=== PATIENT | female | born 1940 | race American Indian/Alaskan Native ===

== ENCOUNTER 2021-06-01 06:22 | Day surgery (SDC) | payer MEDICARE ==
[2021-06-01] MEDS ORDERED: ASPIRIN EC 325 MG TAB PO ONE (06:49)
[2021-06-01] MEDS ORDERED: SODIUM CHLORIDE 0.9% 500 ML 500 ML IV SCH (07:00)
[2021-06-01] MEDS ORDERED: HEPARIN 10,000 UNITS/10 ML VIAL ONE (08:11)
[2021-06-01] MEDS ORDERED: NITROGLYCERIN SYRINGE 3 ML ONE (08:11)
[2021-06-01] MEDS ORDERED: HEPARIN/NS 5000 UNIT/500ML 1,000 ML IR ONE (08:11)
[2021-06-01] MEDS ORDERED: LIDOCAINE (2%) 20 MG/1 ML VIAL 20 ML MDV INFILTRATI ONE (08:11)
[2021-06-01] MEDS: fentaNYL 100 MCG/2 ML INJ ONE ×4 (08:34→08:51)
[2021-06-01] MEDS: MIDAZOLAM 2 MG/2 ML INJ ONE ×3 (08:35→08:42)
[2021-06-01] MEDS ORDERED: traMADol 50 MG TAB PO PRN (09:09)
[2021-06-01] MEDS ORDERED: HYDROcodone/ACETAMINOPHEN 5-325 MG TAB PO PRN (09:09)
--- NOTE | 2021-06-01 10:27 | Cardiac Catherization Report ---
DATE OF SERVICE: 06/01/2021 LEFT HEART CATHETERIZATION/BYPASS GRAFT AND BYPASS VENOUS AND PATEL ANGIOGRAPHY CLINICAL INFORMATION: This is an 80-year-old female with history of bypass 3-vessel, PATEL to LAD, SVG to OM and SVG to PDA and PCI of the circ. Last cath was in 2011. Had chest pain with abnormal stress test despite medical management. She had a left heart cath. Procedure was done with moderate sedation started at 8:34, finished at 8:50. There is 16 minutes of moderate sedation noted. DESCRIPTION OF PROCEDURE: Procedure was done via the right common femoral artery, sterile technique and local anesthesia. The 5-Maldivian groin sheath placed in the right common femoral artery. Left system engaged with JL4 catheter. Left main is large and patent. LAD is a medium to large caliber vessel, proximal is patent. Then, diagonal 1 is a small caliber vessel with multiple branches with [id number] tortuosity of the mid 80%. Vessel was ____ vessel. Then, the mid LAD has a 95% lesion with competitive flow. PATEL was engaged with a JR4 catheter, has a medium caliber graft, free of disease from the ostium, body anastomosis site into the mid LAD, feeding retrograde and antegrade from the LAD. Circumflex proximal stent widely patent, OM 100%, mid circ at AV groove 30% and it is a codominant vessel. OM3 patent. SVG to OM2 is a small caliber graft that is patent from proximally and distally, feeds into a small caliber OM2 with retrograde fill into the [place] circ. RCA engaged with JR4, is 100% proximally. You see left to right collaterals feeding the left system filling the small PLV. Then, RCA, the SVG to PDA is a small caliber graft, but it is patent from proximally and distally, feeds into a small PDA that is a less than 2 mm vessel. So LV gram done in [place] and [place] views, shows normal LV function, EF 55-60%, LVEDP of 15 mmHg. LV is 144, aortic is 144/66. No gradient across the aortic valve on pullback. The 5-Maldivian catheters, all taken over guidewire. A 5-Maldivian groin sheath was discontinued, manual pressure held. No hematoma, no bleeding. SUMMARY: Left main patent, LAD proximal patent, mid 95% with patent PATEL to LAD. Diagonal 1 small caliber vessel, but multiple branches, mid 90%. Circumflex proximal stent widely patent. Mid circ 30%, OM 100%. OM2, SVG to OM2 is patent, but small vessel. OM3 patent, left to right collaterals feeding into a small PLV. RCA proximal 100% with patent SVG to PDA, but small vessel, smaller than 2 mm, small vessel disease. We will treat medically. Improvement in cath from 2011 with normal LV function. Explained to the patient and the patient's family in detail. TID: [id number] RECEIPT: [id number] DAVID/AMPARO/CONCEPCION
--- NOTE | 2021-06-01 10:45 | Short Stay Summary ---
Short Stay Documentation Date of service: 06/01/21 - History H&P: obtained from office - Allergies and Medications Current Medications: Allergies No Known Allergies Allergy (Verified 02/10/14 18:20) Home Medications Medication Instructions Recorded Confirmed Last Taken Type Clopidogrel Bisulfate [Plavix] 75 mg PO QDAY 02/10/14 06/01/21 06/01/21 History Felodipine [Felodipine ER] 5 mg PO DAILY 02/10/14 06/01/21 05/31/21 History Metoprolol [Lopressor TAB] 50 mg PO BID 02/10/14 06/01/21 05/31/21 History Oxycodone HCl/Acetaminophen 1 tab PO TID PRN #20 tablet 02/10/14 06/01/21 05/31/21 Rx [Percocet 7.5/325 mg] Pantoprazole [Protonix] 40 mg PO QDAY 02/10/14 06/01/21 05/31/21 History Simvastatin (Nf) [Zocor] 40 mg PO QDAY 02/10/14 06/01/21 05/31/21 History hydroCHLOROthiazide 25 mg PO QDAY 02/10/14 06/01/21 05/31/21 History [Hydrochlorothiazide] Losartan [Cozaar] 100 mg PO QDAY 06/01/21 06/01/21 05/31/21 History Active Medications Hydrocodone Bitart/Acetaminophen (Hydrocodone/Acetaminophen 5-325 Mg Tab) 1 each PO Q4H PRN PRN Reason: Pain, Moderate (4-6) Sodium Chloride (Nacl 0.9% 500 Ml) 500 mls @ 50 mls/hr IV DIRECT ROEL Stop: 06/01/21 16:59 Last Admin: 06/01/21 08:01 Dose: 50 mls/hr Tramadol HCl (Tramadol 50 Mg Tab) 50 mg PO Q4H PRN PRN Reason: Pain, Mild (1-3) - Physical exam Integumentary: other (Dressing clean dry and intact no signs of bleeding or hematoma) - Brief post op/procedure progress note Date of procedure: 06/01/21 Pre-op diagnosis: Abnormal stress test Post-op diagnosis: other (Coronary artery disease) Anesthesia: local Estimated blood loss: minimal - Hospital course Hospital course: Patient went for LHC through groin due to abnormal stress test. Cath showed improvement from previous cath. Patient tolerated procedure well with no complication. Patient to be discharged home with medical management - Disposition Condition at discharge: Good Disposition: 01 HOME / SELF CARE / HOMELESS - Discharge Diagnoses (1) Hx of CABG Status: Acute (2) CAD (coronary artery disease) Status: Acute (3) HTN (hypertension) Status: Acute (4) HLD (hyperlipidemia) Status: Acute (5) Chronic venous insufficiency Status: Acute (6) Stenosis of carotid artery Status: Acute Short Stay Discharge Plan Activity: advance as tolerated Diet: low fat, low cholesterol, low salt Wound: keep clean and dry, per your surgeon's advice Follow up with: WES BAILEY [Other] - 7 Days TED WHITE MD [Staff Physician] - 7 Days
[2021-06-01 13:58] VITALS: BP 136/52
--- NOTE | 2021-06-01 14:12 | Electrocardiograph Report ---
[facility] Test Date: 2021-06-01 Test Time: 07:32:15 Pat Name: MAKSIM CARRASCO Department: Room: Gender: F Fraud Examiner: JENNIFER : 1940 Requested By: TED WHITE Order Number: [id number] Reading MD: Jake Nicholson Measurements Intervals [place] Rate: 64 P: 60 WA: 179 QRS: 24 QRSD: 85 T: 37 QT: 376 QTc: 389 Interpretive Statements Sinus arrhythmia Left ventricular hypertrophy No previous ECG available for comparison Electronically Signed On 06-01-2021 14:12:21 EST by Jake Nicholson
== END 2021-06-01 13:45 | disposition home or self-care (01) ==
LOC: CATHLABREC 06:22
PROVIDERS: ATTEND Internal Medicine
DX: R07.89 Other chest pain (principal); R94.39 Abnormal result of other cardiovascular function study; I25.10 Atherosclerotic heart disease of native coronary artery without angina pectoris; I10 Essential (primary) hypertension; E78.5 Hyperlipidemia, unspecified; I87.2 Venous insufficiency (chronic) (peripheral); K21.9 Gastro-esophageal reflux disease without esophagitis; M19.90 Unspecified osteoarthritis, unspecified site; Z90.710 Acquired absence of both cervix and uterus; Z79.899 Other long term (current) drug therapy; Z95.1 Presence of aortocoronary bypass graft; Z98.49 Cataract extraction status, unspecified eye; Z86.711 Personal history of pulmonary embolism; Z98.890 Other specified postprocedural states
CPT/HCPCS: 93005; 93010; 93459; 99156; J1644; J1815; J2250; J3010; J3490; J7040; Q9967